=== PATIENT | male | born 1945 | race Caucasian/White ===

== ENCOUNTER 2017-05-11 14:23 | Inpatient (IN) | payer MEDICARE, MEDICAID ==
[~2017-05-11] VITALS: Ht 182.9 cm; Wt 61.4 kg
[~2017-05-11 14:23] MED LIST: DIVA125C PO; LURA40TA PO; QUET25TA PO; TAMS0.4C34 PO; TEMA15CA5 PO
[2017-05-11] MEDS ORDERED: IV SET PRIMARY 1 EA INFUS.SET MC ONE (14:30)
[2017-05-11] MEDS ORDERED: IV NS 0.9% 500 ML IV ONE (14:30)
--- NOTE | 2017-05-11 14:40 | NUR ---
bib ra from [employer] for more altered than usual, patient is non verbal but able to follow commands simple, placed in bed, equal grasps on both hands and able to wiggle feet, md at bedside, patient denies complaint of chest pain, patient is on monitor
[2017-05-11 15:01] LABS: BASOPHILS % (AUTO) 0.5 % (0.0-2.0); EOSINOPHILS % (AUTO) 0.3 % (0.0-6.0); HEMATOCRIT 47 % (39-51); HEMOGLOBIN 15.9 g/dL (13.5-17.5); LYMPHOCYTES # (AUTO) 1.4 /CMM (0.8-4.8); LYMPHOCYTES % (AUTO) 22.8 % (20.0-44.0); MEAN CORPUSCULAR HEMOGLOBIN 31 PG (26.0-33.0); MEAN CORPUSCULAR HGB CONC 34 g/dl (31.0-36.0); MEAN CORPUSCULAR VOLUME 91 fL (80-96); MONOCYTES # (AUTO) 0.5 /CMM (0.1-1.30); MONOCYTES % (AUTO) 8.1 % (2.0-12.0); NEUTROPHILS # (AUTO) 4.3 /CMM (1.8-8.9); NEUTROPHILS % (AUTO) 68.3 % (43.0-81.0); PLATELET COUNT (AUTO) 127 /CMM (150-450); RDW COEFFICIENT OF VARIATION 15.4 (11.5-15.0); RED BLOOD CELL COUNT(AUTO) 5.19 MIL/uL (4.5-6.0); WHITE BLOOD COUNT (AUTO) 6.3 K/uL (4.3-11.0)
[2017-05-11 15:15] LABS: SERUM AMMONIA 29 umol/L (11-32)
[2017-05-11] MEDS ORDERED: QUET100T PO (15:20)
[2017-05-11] MEDS ORDERED: BISA10SU8 RC (15:20)
[2017-05-11] MEDS ORDERED: MAGN400O6 PO (15:20)
[2017-05-11] MEDS ORDERED: LISI2.5T2 PO (15:20)
[2017-05-11] MEDS ORDERED: DIVA500T7 PO (15:20)
[2017-05-11] MEDS ORDERED: CLON0.5T4 PO (15:20)
[2017-05-11] MEDS ORDERED: DIVA500T2 PO (15:20)
[2017-05-11 15:23] LABS: TROPONIN I 0.135 ng/mL (0.00-0.056)
[2017-05-11 15:26] LABS: ALANINE AMINOTRANSFERASE 53 U/L (12-78); ALBUMIN 2.9 g/dL (3.4-5.0); ALKALINE PHOSPHATASE 69 U/L (46-116); ASPARTATE AMINOTRANSFERASE 26 U/L (15-37); BILIRUBIN,DIRECT 0.2 mg/dL (0.0-0.2); BILIRUBIN,TOTAL 0.3 mg/dL (0.2-1.0); CALCIUM, SERUM 8.9 mg/dL (8.5-10.1); CARBON DIOXIDE 15 mmol/L (21-32); CHLORIDE 120 mmol/L (98-107); CREATININE 3.3 mg/dL (0.6-1.3); GLUCOSE 139 mg/dL (74-106); POTASSIUM 4.8 mmol/L (3.5-5.1); SODIUM SERUM 151 mmol/L (136-145); TOTAL PROTEIN, SERUM 6.6 g/dL (6.4-8.2)
[2017-05-11 15:29] LABS: UREA NITROGEN, BLOOD 113 mg/dL (7-18)
[2017-05-11 15:49] LABS: INR 1.09 (0.87-1.13); PROTHROMBIN TIME 11.7 SECS (9.5-12.7)
[2017-05-11 16:24] LABS: APPEARANCE,URINE SL CLOUDY (CLEAR); BILIRUBIN,URINE NEGATIVE (NEGATIVE); BLOOD, URINE NEGATIVE Ery/uL (NEGATIVE); COLOR,URINE YELLOW (YELLOW); KETONES,URINE NEGATIVE (NEGATIVE); LEUKOCYTE ESTERASE ,URINE NEGATIVE (NEGATIVE); NITRITE, URINE NEGATIVE (NEGATIVE); PROTEIN,URINE NEGATIVE (NEGATIVE); UGLUCOSE NEGATIVE (NEGATIVE); UROBILINOGEN,URINE 0.2 EU/dL (0.2)
--- NOTE | 2017-05-11 16:44 | NUR ---
CALLED [employer] MANAGER TALENT MANAGEMENT WAS PAGED.
[2017-05-11] MEDS ORDERED: ZOLPIDEM TARTRATE 5 MG TABLET PO PRN (17:30)
[2017-05-11] MEDS ORDERED: ONDANSETRON HCL/PF 4 MG/2 ML VIAL IVP PRN (17:30)
[2017-05-11] MEDS ORDERED: ACETAMINOPHEN 325 MG TABLET PO PRN (17:30)
[2017-05-11] MEDS ORDERED: HYDROCODONE/APAP 5/325MG 1 EACH TABLET PO PRN (17:30)
[2017-05-11] MEDS ORDERED: BISACODYL SUPP (10 MG) 10 MG/SUPP.RECT SUPP.RECT RC PRN (17:30)
[2017-05-11] MEDS ORDERED: IV NS 0.9% 1,000 ML IV PRN (17:30)
--- NOTE | 2017-05-11 17:41 | NUR ---
PATIENT WILL BE ADMITTED INTO 311-1 TELEMETRY BED.
--- NOTE | 2017-05-11 18:30 | NUR ---
AM CASINO FLOOR PERSON NOTE Received pt from ER via [id number] as accompanied by ER staff. Pt A/O X1 able to say yes or no answers. Pt placed on tele monitor. V/S BP113/75 T97.5 P70 R20 O2 sat 98% at 2L/min via NC. F/C intact and patent draining yellow colored urine. IV site on RAC intact and patent. Admitting orders obtained from Dr. Tolentino. Bed in low locked position. Belongings done by staff. Will continue to monitor.
--- NOTE | 2017-05-11 19:30 | NUR ---
CLAIM REP INITIAL NOTE RECEIVED PT AWAKE BUT CONFUSED, NOT ABLE TO VERBALIZE ORIENTATION, PT IS ANXIOUS AND ATTEMPTING TO GET OUT OF BED, PULLING AT OJEDA CATHETER, SIGN OF BLEEDING NOTED ON CATHETER POSSIBLY DUE TO TRAUMA, WILL CONTACT MD TO INFORM. SAFETY MEASURES WILL BE OBSERVED AT ALL TIMES, NEEDS WILL BE ANTICIPATED AND ATTENDED TO PROMPTLY.
[2017-05-11 20:00] VITALS: BP 113/75
--- NOTE | 2017-05-11 20:30 | NUR ---
SPOKE TO ROEL RUDOLPH. NEW ORDER RECEIVED FOR ATIVAN 1MG Q6HR IV PRN, BILATERAL SOFT WRIST RESTRAINTS, AND SITTER TO BE AT BEDSIDE. WILL CARRY ON WITH ORDERS.
[2017-05-11] MEDS: LORAZEPAM INJ 2 MG/ML VIAL IV PRN (20:39)
--- NOTE | 2017-05-11 21:00 | NUR ---
EX- EVANGELINA CALLED, SHE STATES THAT PT HAS HAD A LONG STANDING HX OF RENAL DISEASE AND AN EXTENSIVE MEDICAL HX THAT HAS NOT BEEN RELAYED BY THE FAC[facility], SHE WILL BE OBTAINING THIS MEDICAL HX TOMORROW MORNING AND SHE WILL PROVIDE IT TO [facility] FOR REVIEW.
[2017-05-12] VITALS: BP 109/76
[2017-05-12] MEDS: LORAZEPAM INJ 2 MG/ML VIAL IV PRN ×2 (02:54→10:43)
[2017-05-12 04:00] VITALS: BP 141/56
--- NOTE | 2017-05-12 05:56 | NUR ---
MANAGER CRITICAL CARE UNIT CLOSING NOTE PT REMAINED STABLE DURING CONCRETE TRUCK DRIVER, NO SIGNIFICANT CHANGES IN CONDITION NOTED DURING NIGHT, PT IS WITH SITTER AT BEDSIDE, BILATERAL WRIST RESTRAINTS, PT CONTINUOS TO DISPLAY ANXIETY AND IS ATTEMPTING TO GET OUT OF BED BY HIMSELF, NEEDS HAVE BEEN ANTICIPATED AND ATTENDED TO, SAFETY MEASURES HAS BEEN MAINTAINED, WILL ENDORSE TO INCOMING NURSE FOR ROMAN.
[2017-05-12] MEDS: PANTOPRAZOLE 40 MG TABLET.DR PO SCH ×3 (07:21→09:32)
[2017-05-12 07:49] LABS: CALCIUM, SERUM 9.7 mg/dL (8.5-10.1); CARBON DIOXIDE 18 mmol/L (21-32); CHLORIDE 119 mmol/L (98-107); CREATININE 3.4 mg/dL (0.6-1.3); GLUCOSE 86 mg/dL (74-106); MAGNESIUM 2.7 mg/dL (1.8-2.4); PHOSPHORUS 4.7 mg/dL (2.5-4.9); SODIUM SERUM 152 mmol/L (136-145)
[2017-05-12 07:50] LABS: UREA NITROGEN, BLOOD 110 mg/dL (7-18)
[2017-05-12 07:54] LABS: POTASSIUM 6.2 mmol/L (3.5-5.1)
--- NOTE | 2017-05-12 07:55 | NUR ---
tele hat cleaner: notes lab called re: k+=6.2. epic notified and was placed on hold, but disconnected after a few minutes.
[2017-05-12 08:00] VITALS: BP 139/95
--- NOTE | 2017-05-12 08:00 | NUR ---
m/s section leader screen printing: notes called epic again, but got disconnected right away.
--- NOTE | 2017-05-12 08:03 | NUR ---
m/s audiovisual technician: notes epic group notified once more and placed a call to dr. currie workers compensation claims examiner re: abnormal labs. will continue to monitor.
[2017-05-12 08:11] LABS: BASOPHILS % (AUTO) 0.2 % (0.0-2.0); EOSINOPHILS % (AUTO) 0.1 % (0.0-6.0); HEMATOCRIT 52 % (39-51); HEMOGLOBIN 17.8 g/dL (13.5-17.5); LYMPHOCYTES # (AUTO) 1.1 /CMM (0.8-4.8); MEAN CORPUSCULAR HEMOGLOBIN 31 PG (26.0-33.0); MEAN CORPUSCULAR HGB CONC 34 g/dl (31.0-36.0); MEAN CORPUSCULAR VOLUME 92 fL (80-96); MONOCYTES # (AUTO) 0.5 /CMM (0.1-1.30); MONOCYTES % (AUTO) 5.8 % (2.0-12.0); NEUTROPHILS # (AUTO) 6.6 /CMM (1.8-8.9); NEUTROPHILS % (AUTO) 80.9 % (43.0-81.0); PLATELET COUNT (AUTO) 107 /CMM (150-450); RDW COEFFICIENT OF VARIATION 15.3 (11.5-15.0); RED BLOOD CELL COUNT(AUTO) 5.71 MIL/uL (4.5-6.0); WHITE BLOOD COUNT (AUTO) 8.2 K/uL (4.3-11.0)
[2017-05-12] MEDS: TAMSULOSIN 0.4 MG CAP.SR.24H PO SCH ×2 (08:17→09:32)
[2017-05-12 08:19] LABS: CHOLESTEROL 211 mg/dL (<200); HDL CHOLESTEROL 70 mg/dL (40-60); LDL 99 mg/dL (0-99); THYROID STIMULATING HORMONE 1.937 uIU/mL (0.358-3.74); TRIGLYCERIDES 115 mg/dL (30-150)
--- NOTE | 2017-05-12 08:24 | NUR ---
tele reliner: notes dr. currie called back and made aware re: abnormal labs, and mention pt has no dentures and has difficulty chewing the soft diet with order to d'c ivf, puree diet, and give 1 bottle of kayexalate 30gr po x 1 now. orders read back and carried out and acknowledged.
[2017-05-12] MEDS ORDERED: SODIUM POLYSTYRENE SULFONATE 15 G/60 ML BOTTLE PO ONE (08:30)
--- NOTE | 2017-05-12 10:00 | NUR ---
tele route relief driver: neuro f/u seen and examined by dr. alcazar at this time and made aware re: valproic acid result=41 and home meds were held. md will review meds as stated. continue on 1:1 sitter. pt remains restless and very confused, unable to comprehend. reality orientation provided prn. will continue to monitor.
--- NOTE | 2017-05-12 10:43 | NUR ---
tele police lieutenant: notes pt very restless m/b attempting to get out bed, disrobing, attempting to pull iv and f/c. ativan 1mg ivp given by rn. reality orientation provided prn, but pt still unable to comprehend; does not follow simple instructions. pt remains confused and disoriented to time, place, and situation. still speech mumbles, unclear,and unable to understand his words. will continue to monitor. continue 1:1 for safety.
--- NOTE | 2017-05-12 11:00 | NUR ---
tele mate fishing vessel: notes pt continue to be restless m/b attempting to pull his f/c despite on swati wrist restraint; also attempting to get out bed by putting his legs over the side rails; keeps rubbing his legs/foot/heel to bed sheet. no skin breakdown or redness noted at this time. turned and repositioned and released swati wrist restraint for circulation. reality orientation provided prn. pt still unable to follow simple direction or instruction. monitored closely. will continue to monitor.
[2017-05-12] MEDS: Z GUARD REMEDY 2 OZ OINT TP PRN (11:53)
[2017-05-12 12:00] VITALS: BP 96/72
--- NOTE | 2017-05-12 12:15 | NUR ---
tele copper tapper: nephro f/u seen and examined by dr. moore at this time and made aware re: abnormal chem results and also made aware re: d'c ivf ns by dr. currie, stated, "i will take a look, he might need some kind of iv fluids."
[2017-05-12] MEDS ORDERED: IV 1/2NS 1000 ML 1,000 ML IV PRN (12:30)
--- NOTE | 2017-05-12 12:40 | NUR ---
tele plate molder: md visit seen and examined by ganesh (acnp) with orders. orders acknowledged. ganesh spoke to lorena (dpoa) and updated plan of care. f/c removed as ordered, edna. well and obtained 250ml of clear yellow urine. pt remains confused and disoriented, still restless. reality orientation provided prn. will continue to monitor.
[2017-05-12] MEDS ORDERED: IV SET PRIMARY PUMP SET 1 EA INFUS.SET MC ONE (13:41)
--- NOTE | 2017-05-12 13:55 | NUR ---
tele clearance rep: notes lab called re: lactic acid result=2.5. ganesh ochoa (acnp) here and made aware. cn made aware. started pt on ivf of 1/2 ns at 100ml/hr. pt remains confused and disoriented to time, place, and situation. reality orientation provided prn. will continue to monitor.
--- NOTE | 2017-05-12 14:18 | NUR ---
tele store protection specialist: notes incontinent of bowel and bladder rendered. kept clean and dry. good pericare rendered. applied z guard for skin management. no skin breakdown or redness noted. turned and repositioned. will continue to monitor.
--- NOTE | 2017-05-12 15:43 | NUR ---
tele cogeneration technician: notes us tech here to do us kidney at bedside. will continue to monitor.
[2017-05-12 16:30] VITALS: BP 99/69
--- NOTE | 2017-05-12 16:45 | NUR ---
tele co chairman: notes incontinent care of bowel and bladder rendered. turned and repositioned pt and released and repositioned swati wrist restraint for circulation. z guard applied for skin management. no skin breakdown noted. pt remains confused and disoriented. reality orientation provided prn. will continue to monitor.
--- NOTE | 2017-05-12 18:54 | NUR ---
tele editor map: cardio f/u seen and examined by dr. child with new order. order acknowledged. tele removed as ordered. incontinent care of bladder rendered, kept clean and dry. released and repositioned swati wrist restraint for circulation. remains confused and disoriented. continue on 1:1 sitter. needs attended. reality orientation provided prn. will continue to monitor.
--- NOTE | 2017-05-12 19:00 | NUR ---
m/s office secretary: notes dr. monsalve (food production manager) notified and made aware regarding abnormal lactic acid, left message via exchange and informed me that they will text the message. cn made aware.
--- NOTE | 2017-05-12 19:14 | NUR ---
m/s motion picture set up worker: notes dr. monsalve called back and made aware re: lactic acid with order to d'c 1/2 ns and change to d5w at 100ml/hr. order read back and carried out and acknowledged. report given to vikram (rn) for continuity of care and made aware to change ivf once pharmacy verified the order.
--- NOTE | 2017-05-12 19:30 | NUR ---
EVENING OR NIGHT NURSE SUPERVISOR INITIAL NOTE RECEIVED PT AWAKE BUT CONFUSED, HE WAS ADMITTED DUE TO AMS, NO SIGNS OF PAIN OR RESPIRATORY DISTRESS NOTED DURING PHYSICAL ASSESSMENT, OJEDA CATHETER WAS D/C'D BY AM NURSE, PT VOIDING ADEQUATELY, HE IS CLEAN/DRY AND COMFORTABLE, SITTER AT BEDSIDE, SAFETY MEASURES WILL BE MAINTAINED AT ALL TIMES, WILL CONTINUE TO MONITOR CLOSELY AND ATTEND TO NEEDS PROMPTLY.
[2017-05-12] MEDS: IV D5W 1,000 ML IV SCH (19:38)
[2017-05-12 20:00] VITALS: BP 123/76
--- NOTE | 2017-05-12 20:41 | NUR ---
RECEIVED CRITICAL VALUE OF LACTIC ACID 3.2, MD ALMANZAR MADE AWARE, PT IS ON D5W, ORDER TO CONTINUE FLUIDS, WILL CONTINUE TO MONITOR CLOSELY.
[2017-05-13] MEDS: IV D5W 1,000 ML IV SCH ×2 (05:54→14:56)
[2017-05-13] MEDS: PANTOPRAZOLE 40 MG TABLET.DR PO SCH (07:30)
--- NOTE | 2017-05-13 07:30 | NUR ---
MS RN OPENING RECEIVED PATIENT A/OX0 WITHDRAWALS FROM DEEP TOUCH, MUMBLING RESPONSES UNABLE TO MAKE OUT WORDS. NO S/S PAIN, SOB, DIFFICULTY BREATHING OR PAIN. PATIENT HAS 2LPM NC ON WILL CHECK ROOM AIR. PATIENT BED SOILED ASSISTED RN CARDIAC REHAB TO CHANGE BED AND PROVIDE SKIN CARE. BLE CONTRACTED IN, PATIENT NOT ALLOWING TO RELEASE TO REPOSITION. PILLOWS INBETWEEN LEGS FOR COMFORT. RAILS UPX3 FOR SAFETY, HOB ELEVATED, BED ALARM ON, BED LOWERED AND LOCKED, TV ON FOR COMFORT. WILL ROUND Q2H OR LESS PER NEEDS
[2017-05-13 08:00] VITALS: BP 149/97
--- NOTE | 2017-05-13 08:15 | NUR ---
MS RN NOTES SAT PATIENT UP TO HELP IN WAKING UP. OPENS EYES WITH DEEP TOUCH. ONCE PATIENT WAS OPENING EYES TRIED APPLE SAUCE AND PATIENT ABLE TO SWALLOW NO COMPLICATIONS. BODY PRESSER ALAN TO HELP PATIENT EAT
[2017-05-13] MEDS: Z GUARD REMEDY 2 OZ OINT TP PRN (08:40)
[2017-05-13] MEDS: TAMSULOSIN 0.4 MG CAP.SR.24H PO SCH (08:40)
[2017-05-13 08:49] LABS: BASOPHILS % (AUTO) 0.2 % (0.0-2.0); EOSINOPHILS # (AUTO) 0.1 /CMM (0.0-0.7); EOSINOPHILS % (AUTO) 1.5 % (0.0-6.0); HEMATOCRIT 50 % (39-51); HEMOGLOBIN 16.8 g/dL (13.5-17.5); LYMPHOCYTES # (AUTO) 1.7 /CMM (0.8-4.8); LYMPHOCYTES % (AUTO) 19.6 % (20.0-44.0); MEAN CORPUSCULAR HEMOGLOBIN 31 PG (26.0-33.0); MEAN CORPUSCULAR HGB CONC 34 g/dl (31.0-36.0); MEAN CORPUSCULAR VOLUME 92 fL (80-96); MONOCYTES # (AUTO) 0.8 /CMM (0.1-1.30); MONOCYTES % (AUTO) 8.8 % (2.0-12.0); NEUTROPHILS % (AUTO) 69.9 % (43.0-81.0); PLATELET COUNT (AUTO) 126 /CMM (150-450); RDW COEFFICIENT OF VARIATION 15.7 (11.5-15.0); RED BLOOD CELL COUNT(AUTO) 5.44 MIL/uL (4.5-6.0); WHITE BLOOD COUNT (AUTO) 8.6 K/uL (4.3-11.0)
[2017-05-13 09:24] LABS: CALCIUM, SERUM 9.5 mg/dL (8.5-10.1); CARBON DIOXIDE 25 mmol/L (21-32); CHLORIDE 117 mmol/L (98-107); CREATININE 3.1 mg/dL (0.6-1.3); GLUCOSE 96 mg/dL (74-106); MAGNESIUM 2.5 mg/dL (1.8-2.4); PHOSPHORUS 4.6 mg/dL (2.5-4.9); SODIUM SERUM 152 mmol/L (136-145)
[2017-05-13 09:31] LABS: UREA NITROGEN, BLOOD 93 mg/dL (7-18)
[2017-05-13] MEDS ORDERED: hydrALAZINE HCL 25 MG TABLET PO PRN (10:00)
--- NOTE | 2017-05-13 10:50 | NUR ---
MS RN NOTES CHOCOLATE TEMPERER LUCINA CAPPS AT BEDSIDE
--- NOTE | 2017-05-13 15:49 | NUR ---
MS RN NOTES PATIENT DPOA CALLED AND STATED SHE DOES NOT WANT PATIENT TO GO TO [facility]. SPOKE WITH YUSUF MARK AND SHE IS AWARE.
[2017-05-13 16:45] LABS: ABG BASE EXCESS -3.8 mmol/L; ABG PCO2 30.6 mmHg (35.0-45.0); ABG PH 7.421 (7.350-7.450); ABG PO2 86.3 mmHg (75.0-100.0); AaDO2 26.8 mmHg; COHb 0.6 % (0.5-1.5); MetHb 0.8 % (0.0-1.5); O2Hb 94.7 % (94.0-97.0); SITE, ABG Right Brachial; VENT MODE, BG ROOM AIR
--- NOTE | 2017-05-13 18:45 | NUR ---
MS RN CLOSING PATIENT IV INFILTRATED, REMOVED PRESSURE AND DRESSING APPLIED AND NO BLEEDING. ARM ELEVATED. APPEARS TO BE HARD STICK, HAVING ANOTHER RN SEE PATIENT. ALL DUE MEDS GIVEN AND ALL NEEDS MET. PATIENT TURNED Q2H AND FREQUENT SKIN CHECKS COMPLETED. CALL LIGHT IN REACH, BED LOWERED AND LOCKED RAILS UPX3 FOR SAFETY. PATIENT MORE ALERT AND AWAKE CONVERSING AT TIMES
--- NOTE | 2017-05-13 19:30 | NUR ---
GPS RN NOTES RECEIVED PATIENT RESTING IN BED. SITTER AT BEDSIDE. NO COMPLAINTS VERBALIZED AT THIS TIME. RESPIRATIONS EVEN AND UNLABORED. ALERT AND ORIENTED X 1. FOR IV RE INSERTION. PATIENT IS INCONTINENT. WILL MONITOR PATIENT FOR SAFETY.
[2017-05-13 19:32] LABS: CREATININE, URINE 81.3 MG/DL (30.0-125.0)
[2017-05-13 20:00] VITALS: BP 106/68
--- NOTE | 2017-05-13 23:00 | NUR ---
GPS RN NOTES IV FLUID RE INSERTED AT LEFT WRIST WITH G. 22 NEEDLE.
[2017-05-14 06:33] LABS: BASOPHILS % (AUTO) 0.3 % (0.0-2.0); EOSINOPHILS # (AUTO) 0.2 /CMM (0.0-0.7); EOSINOPHILS % (AUTO) 3.3 % (0.0-6.0); HEMATOCRIT 41 % (39-51); HEMOGLOBIN 14.2 g/dL (13.5-17.5); LYMPHOCYTES # (AUTO) 1.5 /CMM (0.8-4.8); LYMPHOCYTES % (AUTO) 20.4 % (20.0-44.0); MEAN CORPUSCULAR HEMOGLOBIN 31 PG (26.0-33.0); MEAN CORPUSCULAR HGB CONC 35 g/dl (31.0-36.0); MEAN CORPUSCULAR VOLUME 90 fL (80-96); MONOCYTES # (AUTO) 0.7 /CMM (0.1-1.30); MONOCYTES % (AUTO) 9.7 % (2.0-12.0); NEUTROPHILS % (AUTO) 66.3 % (43.0-81.0); PLATELET COUNT (AUTO) 103 /CMM (150-450); RDW COEFFICIENT OF VARIATION 15.4 (11.5-15.0); RED BLOOD CELL COUNT(AUTO) 4.53 MIL/uL (4.5-6.0); WHITE BLOOD COUNT (AUTO) 7.6 K/uL (4.3-11.0)
--- NOTE | 2017-05-14 07:11 | NUR ---
MS RN OPENING RECEIVED PATIENT A/OX1 AWAKE TO TOUCH. PATIENT NO S/S DIFFICULTY BREATHING OR PAIN AND NO SOB. PATIENT REPOSITIONED AND SACRUM OFFLOADED LEFT LATERAL. HOB ELEVATED PATIENT IS NOT ABLE TO KEEP HIS TONGUE OUT OF HIS AIRWAY. IVF RUNNING ORDERED. CALL LIGHT IN REACH, TV ON FOR COMFORT, BED LOWERED AND LOCKED, RAILS UPX3 FOR SAFETY AND SITTER AT SIDE. WILL ROUND Q2H OR LESS PER NEEDS
[2017-05-14 07:13] LABS: CALCIUM, SERUM 8.6 mg/dL (8.5-10.1); CARBON DIOXIDE 21 mmol/L (21-32); CHLORIDE 113 mmol/L (98-107); CREATININE 2.6 mg/dL (0.6-1.3); GLUCOSE 117 mg/dL (74-106); MAGNESIUM 2.1 mg/dL (1.8-2.4); PHOSPHORUS 3.4 mg/dL (2.5-4.9); POTASSIUM 3.9 mmol/L (3.5-5.1); SODIUM SERUM 145 mmol/L (136-145)
[2017-05-14 07:20] LABS: UREA NITROGEN, BLOOD 82 mg/dL (7-18)
[2017-05-14] MEDS: PANTOPRAZOLE 40 MG TABLET.DR PO SCH (07:30)
[2017-05-14 08:00] VITALS: BP 109/61
[2017-05-14] MEDS: TAMSULOSIN 0.4 MG CAP.SR.24H PO SCH (08:24)
[2017-05-14] MEDS: IV D5W 1,000 ML IV SCH (08:28)
[2017-05-14] MEDS: Z GUARD REMEDY 2 OZ OINT TP PRN (08:28)
--- NOTE | 2017-05-14 09:24 | NUR ---
MS RN NOTES PATIENT ABLE TO TELL ME HIS NAME TODAY AND OPENS EYES SPONTANEOUSLY WHEN SPOKEN TO AT TIMES
[2017-05-14 16:00] VITALS: BP 103/63
[2017-05-14] MEDS: IV D5W 1,000 ML IV PRN (18:24)
--- NOTE | 2017-05-14 18:54 | NUR ---
MS RN CLOSING PATIENT STABLE NO COMPLICATONS. ALL DUE MEDS GIVEN AND ALL NEEDS MET. PATIENT TURNED Q2H AND FREQUENT SKIN CHECKS COMPLETED. CALL LIGHT IN REACH, BED LOWERED AND LOCKED RAILS UPX3 FOR SAFETY. PATIENT MORE ALERT AND AWAKE CONVERSING TODAY AND ASKING QUESTIONS. STILL LETHARGIC.
--- NOTE | 2017-05-14 19:10 | NUR ---
RN NOTES RECEIVED PT AWAKE, CONSTANTLY MOVING IN BED, NO SOB, NOT IN DISTRESS, ON ROOM AIR AND TOLERATED WELL. PT ALERT AND ORIENTED X1, ABLE TO MENTION HIS NAME, CONFUSED. NO SIGNS OF PAIN OR DISCOMFORT NOTED. IV ACCESS ON LEFT WRIST PATENT AND INTACT WITH ONGOING IVF INFUSING WELL. SAFETY MEASURES IN PLACED , SITTER AT BEDSIDE. KEPT COMFORTABLE AND ATTENDED. WILL CONTINUE TO MONITOR PT.
[2017-05-14 22:00] VITALS: BP 106/59
[2017-05-15] MEDS: IV D5W 1,000 ML IV PRN (05:37)
[2017-05-15 06:37] LABS: BASOPHILS % (AUTO) 0.1 % (0.0-2.0); EOSINOPHILS # (AUTO) 0.2 /CMM (0.0-0.7); EOSINOPHILS % (AUTO) 2.3 % (0.0-6.0); HEMATOCRIT 36 % (39-51); HEMOGLOBIN 12.4 g/dL (13.5-17.5); LYMPHOCYTES # (AUTO) 1.9 /CMM (0.8-4.8); LYMPHOCYTES % (AUTO) 26.3 % (20.0-44.0); MEAN CORPUSCULAR HEMOGLOBIN 31 PG (26.0-33.0); MEAN CORPUSCULAR HGB CONC 34 g/dl (31.0-36.0); MEAN CORPUSCULAR VOLUME 91 fL (80-96); MONOCYTES # (AUTO) 0.7 /CMM (0.1-1.30); MONOCYTES % (AUTO) 9.5 % (2.0-12.0); NEUTROPHILS # (AUTO) 4.4 /CMM (1.8-8.9); NEUTROPHILS % (AUTO) 61.8 % (43.0-81.0); PLATELET COUNT (AUTO) 95 /CMM (150-450); RED BLOOD CELL COUNT(AUTO) 3.97 MIL/uL (4.5-6.0); WHITE BLOOD COUNT (AUTO) 7.1 K/uL (4.3-11.0)
[2017-05-15 06:47] LABS: CALCIUM, SERUM 8.2 mg/dL (8.5-10.1); CARBON DIOXIDE 23 mmol/L (21-32); CHLORIDE 111 mmol/L (98-107); CREATININE 2.3 mg/dL (0.6-1.3); GLUCOSE 96 mg/dL (74-106); MAGNESIUM 1.7 mg/dL (1.8-2.4); POTASSIUM 3.4 mmol/L (3.5-5.1); SODIUM SERUM 144 mmol/L (136-145); UREA NITROGEN, BLOOD 67 mg/dL (7-18)
--- NOTE | 2017-05-15 07:04 | NUR ---
RN NOTES PT ASLEEP, BREATHING REGULAR AND UNLABORED, NO SOB, NOT IN DISTRESS, ON ROOM AIR AND TOLERATED WELL. VITAL SIGNS STABLE, AFEBRILE. NO COMPLAIN OF PAIN , NO EPISODE OF NAUSEA AND VOMITING. PT CALM AND QUIET AND SLEPT MOST OF THE NIGHT. KEPT CLEAN AND DRY. ALL NEEDS MET. SAFETY MEASURES IN PLACE, WITH SITTER AT BEDSIDE. WILL ENDORSE TO MORNING RN FOR CONTINUITY OF CARE.
[2017-05-15 08:00] VITALS: BP 97/62
[2017-05-15] MEDS: PANTOPRAZOLE 40 MG TABLET.DR PO SCH (08:39)
[2017-05-15] MEDS: TAMSULOSIN 0.4 MG CAP.SR.24H PO SCH (08:39)
[2017-05-15 09:17] LABS: EOSINOPHILS % (MANUAL) 3 % (0-4); LYMPHOCYTES % (MANUAL) 28 % (16-48); MONOCYTES % (MANUAL) 7 % (0-11.0); NEUTROPHILS % (MANUAL) 62 (42-76)
[2017-05-15] MEDS ORDERED: Magnesium 1GM/D5W 100ML PREMIX 100 ML IV SCH (12:30)
[2017-05-15] MEDS ORDERED: POTASSIUM CHLORIDE 10 MEQ TABLET.SA PO ONE (14:00)
[2017-05-15] MEDS ORDERED: IV SET PRIMARY 1 EA INFUS.SET MC ONE (14:32)
[2017-05-15] MEDS ORDERED: SECONDARY IV SET 1 EA INFUS.SET MC ONE (14:40)
== END 2017-05-15 18:20 | DRG 280 ==
LOC: ER 14:29 → TELE 17:47 → MED 05-12 21:35
DX: I21.4 Non-ST elevation (NSTEMI) myocardial infarction (principal); N17.0 Acute kidney failure with tubular necrosis; G93.41 Metabolic encephalopathy; E44.0 Moderate protein-calorie malnutrition; E87.2 Acidosis; E87.0 Hyperosmolality and hypernatremia; J98.11 Atelectasis; I12.9 Hypertensive chronic kidney disease with stage 1 through stage 4 chronic kidney disease, or unspecified chronic kidney disease; N18.9 Chronic kidney disease, unspecified; F41.9 Anxiety disorder, unspecified; I25.10 Atherosclerotic heart disease of native coronary artery without angina pectoris; B35.1 Tinea unguium; F17.200 Nicotine dependence, unspecified, uncomplicated; F32.9 Major depressive disorder, single episode, unspecified; F20.9 Schizophrenia, unspecified; I70.0 Atherosclerosis of aorta; E86.0 Dehydration; E87.5 Hyperkalemia; K59.00 Constipation, unspecified; N40.1 Benign prostatic hyperplasia with lower urinary tract symptoms; R33.8 Other retention of urine; Z79.899 Other long term (current) drug therapy; I67.2 Cerebral atherosclerosis; G40.909 Epilepsy, unspecified, not intractable, without status epilepticus
CPT/HCPCS: 36415; 36600; 70450-TC; 71010-TC; 76770-TC; 80048-TC; 80061-TC; 80076-TC; 80164-TC; 81000-TC; 82140-TC; 82570-TC; 83605-TC; 83735-TC; 84100-TC; 84300-TC; 84443-TC; 84484-TC; 85025-TC; 85730-TC; 87040-TC; 87081-TC; 87086-TC; 92521; 92611-TC; 93307-TC; 94799-TC; 97001-TC; 97116-TC; 97530-TC; A4606; J2060; J3475; J3490; J7040; J7070; Z7610